=== PATIENT | female | born 1965 | race Asian ===

== ENCOUNTER 2019-04-11 21:37 | Emergency (ER) | payer OTHER ==
[~2019-04-11] VITALS: Ht 157.5 cm; Wt 52.7 kg
[2019-04-11] MEDS ORDERED: SITA25 PO (21:50)
[2019-04-11] MEDS ORDERED: AMLO2.5T4 PO (21:50)
[2019-04-11] MEDS ORDERED: ALBU0.212 IH (21:50)
[2019-04-11] MEDS ORDERED: LISI-622 PO (21:50)
[2019-04-11] MEDS ORDERED: SIMV5TAB58 PO (21:50)
[2019-04-11 22:02] LABS: GLUCOSE,POINT OF CARE 86 MG/DL (70-110)
[2019-04-11] MEDS ORDERED: IOHEXOL 240 MG/ML 50 ML VIAL PO ONE (22:30)
[2019-04-12] VITALS: BP 140/78
== END 2019-04-12 00:08 | disposition home or self-care (01) ==
LOC: EMS 21:38
DX: K94.23 Gastrostomy malfunction (principal); Z79.899 Other long term (current) drug therapy; Y65.8 Other specified misadventures during surgical and medical care
CPT/HCPCS: 43762; 74018; 82962; 99284; Q9966

== ENCOUNTER 2019-07-04 12:58 | Emergency (ER) | payer MEDICAID, OTHER ==
[~2019-07-04] VITALS: Ht 170.2 cm; Wt 95.0 kg
[~2019-07-04 12:58] MED LIST: ALBU0.212 IH; AMLO2.5T4 PO; LISI-622 PO; SIMV5TAB58 PO; SITA25 PO
[2019-07-04] MEDS ORDERED: IOHEXOL 240 MG/ML 50 ML VIAL PO ONE (14:45)
[2019-07-04] MEDS ORDERED: DIATRIZOATE MEGLU/SOD 660/100 MG/ML 120 ML BOTTLE PO ONE (15:30)
[2019-07-04 18:32] VITALS: BP 128/79
== END 2019-07-04 18:34 | disposition home or self-care (01) ==
LOC: EMS 12:59
DX: K94.23 Gastrostomy malfunction (principal); Z79.899 Other long term (current) drug therapy
CPT/HCPCS: 43762; 74018; 99284; Q9963; Q9966

== ENCOUNTER 2019-10-04 13:28 | Emergency (ER) | payer OTHER, MEDICAID ==
[~2019-10-04] VITALS: Ht 165.1 cm; Wt 45.5 kg
[2019-10-04] MEDS ORDERED: DIATRIZOATE MEGLU/SOD 660/100 MG/ML 120 ML BOTTLE PO ONE (14:00)
[2019-10-04] MEDS ORDERED: AMLO5TAB9 PO (14:04)
[2019-10-04] MEDS ORDERED: IPRAHFA IH (14:04)
[2019-10-04] MEDS ORDERED: CARV3.1231 PO (14:04)
[2019-10-04] MEDS ORDERED: SIMV-260 PO (14:04)
[2019-10-04] MEDS ORDERED: LISI-662 PO (14:04)
[2019-10-04] MEDS ORDERED: ALBU2.5V2 NEB (14:04)
[2019-10-04] MEDS ORDERED: DIATRIZOATE MEGLU/SOD 660/100 MG/ML 120 ML BOTTLE ONE (14:29)
[2019-10-04 15:00] VITALS: BP 125/82
== END 2019-10-04 15:12 | disposition home or self-care (01) ==
LOC: EMS 13:29
DX: K94.23 Gastrostomy malfunction (principal); Z79.899 Other long term (current) drug therapy
CPT/HCPCS: 43762; 74018; 99284; Q9963; 43760